=== PATIENT | female | born 1985 | race Caucasian/White ===

== ENCOUNTER 2017-08-30 11:36 | Day surgery (SDC) | payer OTHER ==
[2017-08-29 09:57] VITALS: BMI 23.9
[2017-08-30 12:34] LABS: Pregnancy Test - Urine (BHCG) Negative (Negative); Pregu Control Background? CLEAR/WHITE (CLR/WHITE); Pregu Control Bar Appear? YES (CONTROL BAR); Specific Gravity 1.009 (1.002-1.036)
[2017-08-30] MEDS ORDERED: PROPOFOL 200 MG/20 ML VIAL ONE (16:15)
[2017-08-30] MEDS ORDERED: Lidocaine 1% PF 5 ML VIAL ONE (16:15)
--- NOTE | 2017-08-30 17:53 | OP ---
DATE OF PROCEDURE: 08/30/2017 TITLE OF PROCEDURE: Esophagogastroduodenoscopy with Schuster dilation and biopsy. PREOPERATIVE DIAGNOSES: 1. Persistent reflux despite therapy. 2. Globus sensation. POSTOPERATIVE DIAGNOSES: 1. Examination to second portion of duodenum. 2. Grossly normal appearing esophagus. 3. Normal stomach and duodenum. 4. Status post dilation of the entire esophagus with a 54-Israeli Schuster dilator. 5. Biopsies obtained in the lower esophagus for histology. PROCEDURE IN DETAIL: Written informed consent was obtained. The patient was brought to the endoscop y suite. Total intravenous anesthesia was provided by Dr. Ryan Mayer and associates. The patient was placed in the left lateral decubitus position. A bite block was inserted into the mouth. When adequate sedation was achieved, a Pentax video diagnostic gastroscope was introduced into the oral ca vity and the esophagus was carefully intubated. The endoscope was advanced under direct visualizatio n to the second portion of the duodenum. Endoscopic findings revealed a grossly normal appearing eso phagus with normal motility and no evidence of the stenosis or stricture. The endoscope passed easil y into the stomach and the stomach and duodenum were carefully examined. This included a retroflexed view of the cardia and fundus. No ulcers or inflammatory areas were identified. Due to the patient 's reflux and globus sensation, empiric dilation was carried out with a 54-Israeli Schuster dilator wit h no resistance. The endoscope was reintroduced after the dilation and showed an intact esophagus wi thout evidence of esophageal tear or bleeding. Biopsies were obtained in the lower third of the esop hagus at 34 cm from the incisors. The Z-line was estimated at 38 or 39 cm. The tissue was submitted to pathology. The stomach and esophagus were decompressed as the endoscope was completely removed f rom the patient. She was transferred to the day stay surgery area for post-procedure monitoring. Th ere were no immediate complications. RECOMMENDATIONS: 1. Await pathology results. 2. Ask the patient to call me in 1 week for pathology results. 3. Continue Dexilant for now. 4. Consider esophageal manometry to evaluate for a motility disorder in the near future. 5. Follow up with me in the office in 4-6 weeks.
== END 2017-08-30 15:00 | disposition home or self-care (01) ==
LOC: SDC 11:36
PROVIDERS: ATTEND Internal Medicine Gastroenterology
PROC: 0DB38ZX Excision of Lower Esophagus, Via Natural or Artificial Opening Endoscopic, Diagnostic (ICD-10-PCS; principal; 2017-08-30)
PROC: 0D757DZ Dilation of Esophagus with Intraluminal Device, Via Natural or Artificial Opening (ICD-10-PCS; principal; 2017-08-30)
DX: K21.0 Gastro-esophageal reflux disease with esophagitis (principal); Z79.51 Long term (current) use of inhaled steroids; Z79.899 Other long term (current) drug therapy; Z97.5 Presence of (intrauterine) contraceptive device; Z83.79 Family history of other diseases of the digestive system
CPT/HCPCS: 81025; 88305; 88312; 88313; J2001; J2704

== ENCOUNTER 2021-07-08 16:50 | Emergency (ER) | payer OTHER | END 2021-07-08 18:05 | LOC: ERS 16:50 | DX: M79.662 Pain in left lower leg (principal); K21.9 Gastro-esophageal reflux disease without esophagitis; X50.1XXA Overexertion from prolonged static or awkward postures, initial encounter; Y92.239 Unspecified place in hospital as the place of occurrence of the external cause; Z79.899 Other long term (current) drug therapy | CPT/HCPCS: 29515 ==

== ENCOUNTER 2022-04-20 11:42 | Outpatient (CLI) | payer BC | END 2022-04-20 11:43 | disposition home or self-care (01) | LOC: BICRAD 11:42 | PROVIDERS: ATTEND Nurse Practitioner Family | DX: M25.552 Pain in left hip (principal); D72.828 Other elevated white blood cell count; Q76.49 Other congenital malformations of spine, not associated with scoliosis | CPT/HCPCS: 71046 ==

== ENCOUNTER 2022-06-07 11:15 | Outpatient (CLI) | payer BC | END 2022-06-07 11:16 | disposition home or self-care (01) | LOC: BICRAD 11:15 | PROVIDERS: ATTEND Nurse Practitioner Family | DX: M54.42 Lumbago with sciatica, left side (principal); M47.816 Spondylosis without myelopathy or radiculopathy, lumbar region | CPT/HCPCS: 72120 ==

== ENCOUNTER 2022-06-30 08:11 | Outpatient (CLI) | payer BC | END 2022-06-30 08:12 | disposition home or self-care (01) | LOC: SCSMRI 08:11 | PROVIDERS: ATTEND Specialist | DX: M51.17 Intervertebral disc disorders with radiculopathy, lumbosacral region (principal); M25.78 Osteophyte, vertebrae; E27.8 Other specified disorders of adrenal gland; M47.816 Spondylosis without myelopathy or radiculopathy, lumbar region; R29.890 Loss of height; M48.062 Spinal stenosis, lumbar region with neurogenic claudication | CPT/HCPCS: 72148 ==

== ENCOUNTER 2023-02-02 11:18 | Outpatient (CLI) | payer BC, OTHER | END 2023-02-02 11:19 | disposition home or self-care (01) | LOC: SCSRAD 11:18 | PROVIDERS: ATTEND Nurse Practitioner Family | DX: S99.912A Unspecified injury of left ankle, initial encounter (principal); S82.52XD Displaced fracture of medial malleolus of left tibia, subsequent encounter for closed fracture with routine healing; Z98.890 Other specified postprocedural states ==

== ENCOUNTER 2023-05-04 16:23 | Outpatient (CLI) | payer OTHER ==
[2023-05-04 17:32] LABS: BHCG - Serum Negative (NEGATIVE); Pregs Control Background? CLEAR/WHITE (CLR/WHITE); Pregs Control Bar Appear? YES (CONTROL BAR)
== END 2023-05-04 16:24 | disposition home or self-care (01) ==
LOC: LABBT 16:23
PROVIDERS: ATTEND Neurological Surgery
DX: Z01.812 Encounter for preprocedural laboratory examination (principal); M51.26 Other intervertebral disc displacement, lumbar region
CPT/HCPCS: 84703; 93005; 93010

== ENCOUNTER 2023-05-10 06:33 | Day surgery (SDC) | payer OTHER ==
[2023-05-03 14:41] VITALS: BMI 39.8
[2023-05-10] MEDS ORDERED: EPINEPHrine 1 MG/ML VIAL ONE (06:55)
[2023-05-10] MEDS ORDERED: Thrombin 5000 UNITS/5 ML VIAL ONE (06:56)
[2023-05-10] MEDS ORDERED: Bupivacaine PF 0.5% 30 ML VIAL ONE (06:56)
[2023-05-10] MEDS ORDERED: Vancomycin 1 GM VIAL ONE (06:56)
[2023-05-10] MEDS ORDERED: fentaNYL PF 100 MCG/2 ML SYRINGE ONE (07:07)
[2023-05-10] MEDS ORDERED: PROPOFOL 20 ML ONE (07:08)
[2023-05-10] MEDS ORDERED: Ondansetron PF 4 MG/2 ML Vial ONE ×2 (07:08→10:44)
[2023-05-10] MEDS ORDERED: Rocuronium Bromide 10 MG/ML (10ML VIAL) ONE (07:08)
[2023-05-10] MEDS ORDERED: Dexamethasone 4 mg/ml Vial ONE (07:08)
[2023-05-10] MEDS ORDERED: Lidocaine 1% PF 5 ML VIAL ONE (07:08)
[2023-05-10] MEDS ORDERED: Midazolam HCl 2 mg/2 ml Vial ONE (07:39)
[2023-05-10] MEDS ORDERED: CEFAZOLIN 2 GM VIAL ONE ×2 (07:42→13:10)
[2023-05-10] MEDS ORDERED: Sodium Chloride 0.9% 100 ML ONE ×2 (07:42→13:10)
[2023-05-10 08:00] LABS: Anion Gap 12 mmol/L (10-20); BUN (Urea Nitrogen) 11 mg/dL (7.0-18.7); Calc. Creatinine Clearance 156 mL/min (70-130); Calcium 9.1 mg/dL (7.8-10.44); Carbon Dioxide 24 mmol/L (22-29); Chloride 105 mmol/L (98-107); Estimated GFR 100; Glucose 117 mg/dL (70-105); Potassium 3.6 mmol/L (3.5-5.1); Sodium 137 mmol/L (136-145)
[2023-05-10] MEDS ORDERED: SUGAMMADEX SODIUM 200 MG/2 ML VIAL ONE (08:54)
[2023-05-10] MEDS ORDERED: Ketorolac Tromethamine 30 MG/ML VIAL ONE (08:55)
[2023-05-10] MEDS ORDERED: fentaNYL 50 mcg/mL 1 mL Vial ONE ×3 (09:48→10:34)
[2023-05-10] MEDS ORDERED: HYDROcodone/Acetaminophen 5/325 mg Tablet ONE (11:24)
[2023-05-10] MEDS ORDERED: Morphine 2 MG/ML VIAL ONE (11:25)
== END 2023-05-10 14:18 | disposition home or self-care (01) ==
LOC: SDC 06:33
PROVIDERS: ATTEND Neurological Surgery
PROC: 0QB00ZZ Excision of Lumbar Vertebra, Open Approach (ICD-10-PCS; principal; 2023-05-10)
DX: M51.16 Intervertebral disc disorders with radiculopathy, lumbar region (principal); Z98.890 Other specified postprocedural states; Z79.899 Other long term (current) drug therapy
CPT/HCPCS: 80048; J0171; J1100; J1885; J2250; J2272; J2405; J2704; J3010; J3370; J3490; S0020

== ENCOUNTER 2024-04-29 07:39 | Outpatient (CLI) | payer OTHER ==
[2024-04-29] MEDS ORDERED: Barium Sulfate 96% 176 GM BOT (xray ONLY) ONE (07:55)
[2024-04-29] MEDS ORDERED: E-Z-HD 98% W/W 340GM BOT (x-ray ONLY) ONE (07:55)
== END 2024-04-29 07:40 | disposition home or self-care (01) ==
LOC: RAD 07:39
PROVIDERS: ATTEND Surgery
DX: K21.9 Gastro-esophageal reflux disease without esophagitis (principal)
CPT/HCPCS: 74220